=== PATIENT | male | born 1980 | race African-American/Black ===

== ENCOUNTER 2019-08-28 09:56 | Emergency (ER) | payer BC, SELFPAY ==
[2019-08-28 10:01] VITALS: BP 135/83; PULSE 65; RESP 18; TEMP 36.6; O2SAT 100
--- NOTE | 2019-08-28 10:05 | ED.URI ---
HPI - URI/Sore Throat General Chief Complaint: Upper Respiratory Infection Stated Complaint: cough/sinus franco/sinus issues Time Seen by Provider: 08/28/19 10:05 Source: patient and RN notes reviewed Mode of arrival: ambulatory Limitations: no limitations History of Present Illness MD elicited complaint: cough Related Data Home Medications Medication Instructions Recorded Confirmed ibuprofen 200 mg PO Q6H PRN 08/28/19 08/28/19 montelukast 10 mg PO DAILY 08/28/19 08/28/19 Allergies Allergy/AdvReac Type Severity Reaction Status Date / Time No Known Allergies Allergy Verified 08/28/19 10:07 Review of Systems Review of Systems: Narrative: CONSTITUTIONAL: Denies malaise, sweats, or fever. Reports chills EYES: Denies visual changes, redness, or discharge. ENT: Reports rhinorrhea, congestion, sinus pain. Denies otalgia and sore throat. CARDIOVASCULAR: Denies chest pain, palpitations, or edema. RESPIRATORY: Reports occasional cough. Denies dyspnea. GASTROINTESTINAL: Denies abdominal pain, nausea, vomiting, diarrhea SKIN: Denies rash or itching. MUSCULOSKELETAL: Denies myalgia. NEUROLOGIC: Reports headache. All systems reviewed & are unremarkable except as noted in HPI and below PMFSH Past Medical History Medical History (Updated 08/28/19 @ 10:22 by Radha Mckenna NP) Anxiety GERD (gastroesophageal reflux disease) Leg fracture, right Seasonal asthma Social History Social History (Updated 05/20/19 @ 16:20 by Elizabeth Tran) Smoking status: Never smoker Alcohol intake: current Comments At time of signature, agree with nursing past medical, surgical, social and family history. There is no relevant family history pertinent to the presenting complaint Exam Narrative: Exam Narrative: GENERAL: Well-appearing, well-nourished, and in no acute distress. HEAD: Normocephalic EYES: PERRLA, conjunctivae clear ENT: Nares clear, turbinates edematous and erythematous, clear discharge. Mucous membranes moist. TM pearly crenshaw with dull light reflex bilaterally; no tragal tenderness. Oropharynx not erythematous without lesions. Tonsils not enlarged and without exudate, no drooling, no hoarseness, no trismus, uvula midline. NECK: Supple. No lymphadenopathy CHEST: Clear to auscultation, breath sounds equal. No wheezing, rhonchi, rales, or stridor. No respiratory distress, speaks in full sentences. HEART: Regular rate and rhythm. No murmur heard. Normal peripheral pulses. SKIN: Warm, dry, no rash. NEURO: Alert and oriented x3. PSYCH: Normal mood and affect Course Course Emergency Course: Patient is aware of diagnosis, understands and agrees to treatment plan. Anticipatory guidance given. Patient agrees to follow-up as directed and is aware of reasons to seek care at the emergency department. Portions of this record may have been created with voice recognition software Vital Signs Vital signs: Vital Signs Temperature 97.8 F 08/28/19 10:01 Pulse Rate 65 08/28/19 10:01 Respiratory Rate 18 08/28/19 10:01 Blood Pressure 135/83 08/28/19 10:01 Pulse Oximetry 100 08/28/19 10:01 Temperature 97.8 F 08/28/19 10:01 Pulse Rate 65 08/28/19 10:01 Respiratory Rate 18 08/28/19 10:01 Blood Pressure 135/83 08/28/19 10:01 Pulse Oximetry 100 08/28/19 10:01 Reviewed. MDM - URI/Sore Throat MDM Narrative Medical decision making narrative: Differential diagnosis considered: Strep pharyngitis, allergic rhinitis, upper respiratory tract infection, sinusitis, rhinosinusitis, nasopharyngitis. viral pharyngitis, otitis media, otitis externa, pneumonia, bronchitis, viral cough syndrome, viral syndrome, and influenza. Exam findings show no acute concerns or changes; patient is non-toxic appearing and is in no distress. Patient is appropriate for outpatient treatment and follow-up. Critical Care Time Critical Care Time Critical Care Time: No Discharge Plan Discharge Clinical Impression: Upper respiratory infec
== END 2019-08-28 10:30 | disposition home or self-care (01) ==
PROVIDERS: Emergency Provider Nurse Practitioner; PCP Internal Medicine
DX: J06.9 Acute upper respiratory infection, unspecified (principal); K21.9 Gastro-esophageal reflux disease without esophagitis
CPT/HCPCS: 99213; G0463

== ENCOUNTER 2019-12-14 21:28 | Emergency (ER) | payer BC, SELFPAY ==
--- NOTE | ~2019-12-14 | XR_ITS ---
EXAMINATION: XR ankle RT 2V INDICATION: Right ankle pain TECHNIQUE: Two views of the right ankle are obtained. COMPARISON: None available FINDINGS: There is no fracture, dislocation, or subluxation. The bones, soft tissues, and joint space s are normal. IMPRESSION: 1. No acute osseous abnormality. Reviewed, dictated and finalized at location A.
[2019-12-14 21:36] VITALS: BP 114/79; PULSE 91; RESP 14; TEMP 36.9; O2SAT 100
--- NOTE | 2019-12-14 22:37 | PC.NURSE ---
PT MOVED TO ROOM ONE AT THIS TIME.
[2019-12-14] MEDS: KETOROLAC 30 MG/ML VIAL (*BKC) IV PUSH (23:09)
[2019-12-14] MEDS: SODIUM CHLORIDE 0.9% IV 1,000 ML 999 ML IV CONT (23:09)
[2019-12-14 23:10] VITALS: BP 112/67; PULSE 83; RESP 16; O2SAT 98
[2019-12-14 23:25] LABS: Basophils Percent Auto 0.4 % (0.2-1.2); Eosinophils Absolute Auto 0.2 K/mm3 (0-0.3); Hematocrit 39.9 % (42.0-52.0); Hemoglobin 13.4 g/dL (14.0-18.0); Immature Granulocyte Absolute 0.02 K/mm3 (0.00-0.031); Immature Granulocyte Percent A 0.3 % (0-0.5); Lymphocytes Absolute Auto 1.07 K/mm3 (0.9-3.2); Mean Corpuscular HGB Conc 33.6 g/dl (32-36); Mean Corpuscular Hemoglobin 29.1 pg (26-34); Mean Corpuscular Volume 86.6 fl (80-100); Mean Platelet Volume 10.4 fl (7.4-10.4); Monocytes Absolute Auto 0.6 K/mm3 (0.1-0.6); Monocytes Percent Auto 8.7 % (2.6-8.5); Neutrophils Absolute Auto 5.2 K/mm3 (1.3-6.7); Neutrophils Percent Auto 72.6 % (45.5-73.1); Platelet Count Result 222 k/mm3 (150-375); Red Blood Count 4.61 M/mm3 (4.6-6.20); White Blood Count 7.1 K/mm3 (4.5-10.0)
[2019-12-14 23:37] LABS: Blood Urea Nitrogen 18 mg/dL (9-20); Calcium 8.6 mg/dL (8.4-10.2); Carbon Dioxide 21 mmol/L (22-30); Chloride 104 mmol/L (98-107); Estimated CRCL calculation 88 ml/min; Estimated Glomerular Filt Rate > 60; Glucose 212 mg/dL (75-110); Potassium 3.2 mmol/L (3.4-5.0); Sodium 133 mmol/L (137-145)
[2019-12-15 00:11] LABS: Hemoglobin A1C 5.7 % (<5.7)
[2019-12-15] MEDS: POTASSIUM CHLORIDE 20 MEQ TABLET 40 MEQ PO (00:43)
[2019-12-15 00:58] VITALS: BP 119/79; PULSE 71; RESP 19; TEMP 36.4; O2SAT 100
--- NOTE | 2019-12-15 02:05 | PC.NURSE ---
pt refuses to put weight on r ankle at this time. edp notified.
--- NOTE | 2019-12-15 02:58 | ED.LOWEXIN ---
HPI - Extremity Injury (Lower) General Chief Complaint: Extremity Injury, Lower Stated Complaint: R ankle pain Time Seen by Provider: 12/14/19 22:15 History of Present Illness HPI Narrative: Patient is a 39-year-old male who presents the ER with sudden onset pain in his right lower extremity. Is mainly in his right ankle and right calf. He gone out for a ride and came home. When he was walking inside he developed sudden pain. No traumatic injury. Has intermittent cramping in his calf also in his thigh. No numbness or tingling. Has not had similar symptoms. Takes no medications. Related Data Home Medications Medication Instructions Recorded Confirmed ibuprofen 200 mg PO Q6H PRN 08/28/19 08/28/19 montelukast 10 mg PO DAILY 08/28/19 08/28/19 Allergies Allergy/AdvReac Type Severity Reaction Status Date / Time No Known Allergies Allergy Verified 08/28/19 10:07 Review of Systems Review of Systems: All systems reviewed & are unremarkable except as noted in HPI and below Constitutional: Constitutional: Denies chills, Denies fever(s) and Denies weakness ENT: Denies nasal congestion and Denies sore throat Cardiovascular: Cardiovascular: Denies chest pain and Denies radiating jaw, neck or arm pain Respiratory: Respiratory: Denies cough and Denies dyspnea Musculoskeletal: Musculoskeletal: Reports arthralgias, Denies joint swelling and Reports muscle cramps PMFSH Past Medical History Medical History (Updated 12/15/19 @ 03:05 by Mateus Holbrook MD) Anxiety GERD (gastroesophageal reflux disease) Leg fracture, right Seasonal asthma Surgical History Surgical History (Updated 12/15/19 @ 02:59 by Mateus Holbrook MD) No pertinent past surgical history Social History Social History (Updated 05/20/19 @ 16:20 by Elizabeth Tran) Smoking status: Never smoker Alcohol intake: current Exam Narrative: Exam Narrative: GENERAL: Well-appearing, well-nourished, and in no acute distress. HEAD: Normocephalic, atraumatic. HEART: Regular rate and rhythm. Normal peripheral pulses. EXTREMITIES: Focused exam of the right lower extremity reveals cramping to the lower aspect of the gastrocnemius seen down to lower posterior aspect of the leg. Achilles tendon intact and nontender. Patient also has significant tenderness over the lateral malleolus anteriorly without swelling. Range of motion intact. SKIN: Warm, dry, no rash. NEURO: No focal deficits. Alert and oriented x3. PSYCH: Normal mood and affect. Course Course Emergency Course: Pain markedly improved after Toradol and Valium. He has been given crutches and an Mitchel wrap for comfort. Patient educated about elevated blood sugar, reports he ate some gummy bears anything satisfied side. Recommend he follow-up with his PCP for repeat tests. Vital Signs Vital signs: Vital Signs Temperature 98.5 F 12/14/19 21:36 Pulse Rate 91 12/14/19 21:36 Respiratory Rate 14 12/14/19 21:36 Blood Pressure 114/79 12/14/19 21:36 Pulse Oximetry 100 12/14/19 21:36 Temperature 97.6 F 12/15/19 00:58 Pulse Rate 71 12/15/19 00:58 Respiratory Rate 19 12/15/19 00:58 Blood Pressure 119/79 12/15/19 00:58 Pulse Oximetry 100 12/15/19 00:58 MDM - Extremity Injury (Lower) Lab Data Result diagrams: 12/14/19 23:05 12/14/19 23:05 Labs: Lab Results 12/14/19 12/14/19 12/14/19 Range/Units 23:05 23:05 23:05 WBC 7.1 (4.5-10.0) K/mm3 RBC 4.61 (4.6-6.20) M/mm3 Hgb 13.4 L (14.0-18.0) g/dL Hct 39.9 L (42.0-52.0) % MCV 86.6 (80-100) fl MCH 29.1 (26-34) pg MCHC 33.6 (32-36) g/dl RDW 13.0 (11.5-14.5) % Plt Count 222 (150-375) k/mm3 MPV 10.4 (7.4-10.4) fl Immature Gran % (Auto) 0.3 (0-0.5) % Neut % (Auto) 72.6 (45.5-73.1) % Lymph % (Auto) 15.0 L (18.3-44.2) % Treasure % (Auto) 8.7 H (2.6-8.5) % Eos % (Auto) 3.0 (0-4.4) % Baso % (Auto) 0.4 (0.2-1
[2019-12-15 03:08] VITALS: BP 121/64; PULSE 80; RESP 19; TEMP 37.2; O2SAT 100
== END 2019-12-15 03:09 | disposition home or self-care (01) ==
PROVIDERS: Emergency Provider Emergency Medicine; PCP Internal Medicine
DX: R25.2 Cramp and spasm (principal); E87.6 Hypokalemia; R73.9 Hyperglycemia, unspecified
CPT/HCPCS: 36415; 73600; 80048; 83036; 85025; 96361; 96374; 96375; 99284; A9270; J1885; J3360; J7030

== ENCOUNTER 2022-12-22 15:16 | Emergency (ER) | payer BC, SELFPAY ==
--- NOTE | 2022-12-22 15:22 | ED.ABDPAIN ---
HPI - Abdominal Pain General Chief Complaint: Abdominal Pain Stated Complaint: STOMACH PAIN Time Seen by Provider: 12/22/22 15:22 Source: patient, RN notes reviewed and old records reviewed Mode of arrival: ambulatory Limitations: no limitations History of Present Illness HPI narrative: 42-year-old male presents to the [facility] with complaints of stomach pain with diarrhea, nausea and vomiting for 1 week. Unable to keep any fluids or food down for about 1 week. Originally stated was unsure of the last time he ate anything. comes in today stating that he has had generalized abdominal pain, cannot reproduce with palpation. Denies any urinary symptoms. Denies chest pain. Denies shortness of breath. Reports a couple of years ago he did had been upper GI study which had no abnormal findings Denies any abdominal surgeries in the past. Denies any past medical history Onset (ago): week(s) (1) Related Data Home Medications Medication Instructions Recorded Confirmed No Home Medications 12/22/22 12/22/22 Allergies Allergy/AdvReac Type Severity Reaction Status Date / Time No Known Allergies Allergy Verified 12/22/22 15:22 Review of Systems Review of Systems: All systems reviewed & are unremarkable except as noted in HPI and below Constitutional: Constitutional: Reports no additional constitutional complaints Eyes: Eyes: Reports no additional eye complaints ENT: Reports system reviewed and no additional complaints, except as documented Cardiovascular: Cardiovascular: Reports no additional cardiovascular complaints, Denies chest pain and Denies dyspnea Respiratory: Respiratory: Reports no additional respiratory complaints, Denies chest congestion, Denies cough and Denies dyspnea Gastrointestinal: Gastrointestinal: Reports as per HPI, Reports abdominal pain, Reports diarrhea, Reports nausea and Reports vomiting Musculoskeletal: Musculoskeletal: Reports no additional musculoskeletal complaints Integumentary/Breasts: Skin/Breast: Reports system reviewed and no additional complaints, except as docu Neurologic: Reports system reviewed and no additional complaints, except as documented Psychiatric: Psychiatric: Reports no additional psychiatric complaints Allergic/Immunologic: Allergic/Immunologic: Reports no additional allergic/immunologic complaints PMFSH Past Medical History Medical History Anxiety GERD (gastroesophageal reflux disease) Leg fracture, right Seasonal asthma Surgical History Surgical History No pertinent past surgical history Social History Social History (Reviewed 12/22/22 @ 15:39 by BERNARDO Casey Smoking status: Never smoker Alcohol intake: current Alcohol use details: occasional Comments At the time of my signature, I reviewed and agree with the nursing past medical, surgical, social, and family history. There is no relevant family history pertinent to the patient complaint. Exam Const: General: cooperative, healthy appearing, comfortable, no acute distress, well developed, alert and well nourished Nutritional Appearance: well nourished Orientation/consciousness: patient oriented x3 Limitations: no limitations HENMT: Head: normal to inspection Ears: hearing grossly normal bilaterally and external ears normal Face/Nose/Sinus: Normal external nose present, Normal nares present, Normal nasal mucous membranes and turbinates present and normal facial exam Face and sinus: normal facial exam Mouth: Yes Normal oral and palatal mucosa present, Yes lip normal and Yes moist mucous membranes Throat: posterior oropharynx normal and uvula midline Eyes: General: appearance normal, both eyes and all related structures Alignment and Position: alignment normal Periorbital: periorbital findings normal Pupils: Equal, round and reactive pupils present EOM: EOMs intact bilatera
[2022-12-22 15:36] LABS: Glucose Point of Care 131 mg/dl (65-105)
[2022-12-22 15:37] VITALS: BP 130/99; PULSE 88; RESP 16; TEMP 36.6; O2SAT 100
== END 2022-12-22 15:38 | disposition short-term general hospital (02) ==
PROVIDERS: Emergency Provider Nurse Practitioner; PCP Internal Medicine
DX: R10.84 Generalized abdominal pain (principal); R11.2 Nausea with vomiting, unspecified; R19.7 Diarrhea, unspecified; K21.9 Gastro-esophageal reflux disease without esophagitis; J45.909 Unspecified asthma, uncomplicated
CPT/HCPCS: 82948; 99212; G0463

== ENCOUNTER 2022-12-22 16:01 | Emergency (ER) | payer BC, SELFPAY ==
--- NOTE | ~2022-12-22 | CT_ITS ---
CT of the Abdomen and Pelvis: Indication: Abdominal pain Technique: 2.5 mm axial scans were obtained through the abdomen and pelvis following intravenous adm inistration of 100 cc of Omnipaque 350. Dose reduction technique was used on this scan by utilizing a utomated exposure control and iterative reconstruction technique. The dose-length product (DLP) was 6 81.71 mGy-cm. Findings: Scans through the lung bases are unremarkable. The liver, spleen, pancreas, gallbladder, adrenals and kidneys are within normal limits. No evidence of aortic aneurysm. No lymphadenopathy. No bowel obstruction or bowel wall thickening. There is no evidence to suggest acute appendicitis. Images through the pelvis were performed. Urinary bladder unremarkable. Prostate gland and seminal ve sicles are unremarkable. No ascites. Impression: No significant abnormalities seen. Reviewed, dictated and finalized at [facility]. Impression: No significant abnormalities seen.
[2022-12-22 16:05] VITALS: BP 151/89; PULSE 89; RESP 20; TEMP 36.6; O2SAT 100
[2022-12-22 16:34] LABS: Appearance Urine Clear (Clear); Bilirubin Urine Negative (Negative); Blood Urine 1+ (Negative); Color Urine Yellow (Yellow); Glucose Urine UA Negative (Negative); Ketones Urine Negative (Negative); Leukocyte Esterase Ur Negative LEU/UL (Negative); Nitrate Urine Negative (Negative); Protein Urine Trace mg/dL (Negative); Specific Grav Ur >= 1.030 (1.001-1.035); Urobilinogen Urine 0.2 mg/dL (<2.0); pH Urine 5.5 (5.0-9.0)
[2022-12-22 16:34] LABS: Basophils Percent Auto 0.5 % (0.2-1.2); Eosinophils Absolute Auto 0.2 K/mm3 (0-0.3); Eosinophils Percent Auto 3.4 % (0-4.4); Hemoglobin 16.1 g/dL (14.0-18.0); Immature Granulocyte Absolute 0.02 K/mm3 (0.00-0.031); Immature Granulocyte Percent A 0.3 % (0-0.5); Lymphocytes Absolute Auto 1.63 K/mm3 (0.9-3.2); Mean Corpuscular HGB Conc 32.9 g/dl (32-36); Mean Corpuscular Hemoglobin 28.9 pg (26-34); Mean Platelet Volume 9.3 fl (7.4-10.4); Monocytes Absolute Auto 0.7 K/mm3 (0.1-0.6); Monocytes Percent Auto 11.1 % (2.6-8.5); Neutrophils Absolute Auto 3.3 K/mm3 (1.3-6.7); Neutrophils Percent Auto 56.7 % (45.5-73.1); Platelet Count Result 261 k/mm3 (150-375); Red Blood Count 5.57 M/mm3 (4.6-6.20); Red Cell Distribution Width 12.9 % (11.5-14.5); White Blood Count 5.8 K/mm3 (4.5-10.0)
[2022-12-22] MEDS: ONDANSETRON INJ 4 MG/2 ML VIAL IV PUSH (16:36)
[2022-12-22] MEDS: SODIUM CHLORIDE 0.9% IV 1,000 ML 999 ML IV CONT (16:37)
--- NOTE | 2022-12-22 16:40 | ED.GENADULT ---
HPI - General Adult General Chief complaint: Nausea/Vomiting/Diarrhea Stated complaint: N/V/D sent from urgent care Time Seen by Provider: 12/22/22 16:18 History of Present Illness HPI narrative: Patient is a 42-year-old male who presents ER with nausea vomiting diarrhea. Reports he has had abdominal pain that has been worsening over the last week. Bloating and cramping. Worsening bilateral lower quadrants. Reports symptoms are worsened with eating drinking and caused him to have loose bowel movements and vomit. No known sick contacts. No radiation pain. Related Data Allergies Allergy/AdvReac Type Severity Reaction Status Date / Time No Known Allergies Allergy Verified 12/22/22 16:03 Review of Systems Review of Systems: All systems reviewed & are unremarkable except as noted in HPI and below Constitutional: Constitutional: Denies chills, Denies fatigue and Denies fever(s) ENT: Denies nasal congestion and Denies sore throat Respiratory: Respiratory: Denies cough and Denies dyspnea Gastrointestinal: Gastrointestinal: Reports abdominal pain, Reports diarrhea, Reports nausea and Reports vomiting Genitourinary: Genitourinary: Denies dysuria and Denies urinary frequency PMFSH Past Medical History Medical History Anxiety GERD (gastroesophageal reflux disease) Leg fracture, right Seasonal asthma Surgical History Surgical History No pertinent past surgical history Social History Social History Smoking status: Never smoker Alcohol intake: current Alcohol use details: occasional Exam Narrative: GENERAL: Well-appearing, well-nourished, and in no acute distress. HEAD: Normocephalic, atraumatic. EYES: PERRL and EOMI. ENT: Mucous membranes moist. CHEST: Clear to auscultation. No respiratory distress. HEART: Regular rate and rhythm. Normal peripheral pulses. ABDOMEN: Soft, mild tenderness bilateral lower quadrants without guarding, nondistended, normal active bowel sounds. EXTREMITIES: Normal range of motion. No edema. SKIN: Warm, dry, no rash. NEURO: Alert and oriented x3. PSYCH: Normal mood and affect. Course Course Emergency Course: Patient resting comfortably. Informed of results. No acute life-threatening or surgical illness. Patient will experiencing gastroenteritis. No evidence of appendicitis/diverticulitis/stone. Discharge home. Vital Signs Vital signs: Vital Signs Temperature 97.9 F 12/22/22 16:05 Pulse Rate 89 12/22/22 16:05 Respiratory Rate 20 12/22/22 16:05 Blood Pressure 151/89 H 12/22/22 16:05 Pulse Oximetry 100 12/22/22 16:05 Oxygen Delivery Room Air 12/22/22 16:05 Temperature 97.9 F 12/22/22 16:05 Pulse Rate 89 12/22/22 16:05 Respiratory Rate 20 12/22/22 16:05 Blood Pressure 151/89 H 12/22/22 16:05 Pulse Oximetry 100 12/22/22 16:05 Oxygen Delivery Room Air 12/22/22 16:05 Medical Decision Making Vital Signs Vital Signs: Vital Signs Temperature 97.9 F 12/22/22 16:05 Pulse Rate 89 12/22/22 16:05 Respiratory Rate 20 12/22/22 16:05 Blood Pressure 151/89 H 12/22/22 16:05 Pulse Oximetry 100 12/22/22 16:05 Oxygen Delivery Room Air 12/22/22 16:05 Temperature 97.9 F 12/22/22 16:05 Pulse Rate 89 12/22/22 16:05 Respiratory Rate 20 12/22/22 16:05 Blood Pressure 151/89 H 12/22/22 16:05 Pulse Oximetry 100 12/22/22 16:05 Oxygen Delivery Room Air 12/22/22 16:05 Lab Data 12/22/22 16:24 12/22/22 16:24 Labs: Lab Results 12/22/22 12/22/22 Range/Units 16:19 16:24 WBC 5.8 (4.5-10.0) K/mm3 RBC 5.57 (4.6-6.20) M/mm3 Hgb 16.1 (14.0-18.0) g/dL Hct 49.0 (42.0-52.0) % MCV 88.0 (80-100) fl MCH 28.9 (26-34) pg MCHC 32.9 (32-36) g/dl RDW 12.9 (11.5-14.5) % Plt Coun
[2022-12-22 16:46] LABS: Alanine Aminotransferase 46 U/L (6-50); Albumin Level 4.4 g/dL (3.5-5.1); Alkaline Phosphatase 100 U/L (38-126); Anion Gap 7 mmol/L (8-16); Aspartate Amino Transferase 43 U/L (17-59); Bilirubin,Total 1.1 mg/dL (0.2-1.3); Blood Urea Nitrogen 13 mg/dL (9-20); Carbon Dioxide 31 mmol/L (22-30); Chloride 103 mmol/L (98-107); Estimated CRCL calculation 89 ml/min; Estimated Glomerular Filt Rate > 60; Glucose 73 mg/dL (65-110); Lipase 68 U/L (23-300); Potassium 3.9 mmol/L (3.4-5.0); Sodium 141 mmol/L (137-145)
[2022-12-22 16:53] LABS: Atypical Lymphocytes Present; Platelet Estimate Adequate (Adequate); Schistocytes None Seen (NORMAL)
[2022-12-22 16:55] LABS: Add Urine Microscopic? YES
[2022-12-22 16:56] LABS: Calcium Oxalate Crystals Urine Present /hpf; WBC Urine 0-3 /hpf (0-3)
[2022-12-22 16:57] LABS: Bacteria Urine Trace /hpf; Mucus Urine Few /lpf
[2022-12-22 18:05] VITALS: BP 135/98; RESP 20; O2SAT 98
== END 2022-12-22 18:05 | disposition home or self-care (01) ==
PROVIDERS: Emergency Provider Emergency Medicine; PCP Internal Medicine
DX: R11.2 Nausea with vomiting, unspecified (principal); R19.7 Diarrhea, unspecified; J45.909 Unspecified asthma, uncomplicated; K21.9 Gastro-esophageal reflux disease without esophagitis
CPT/HCPCS: 36415; 74177; 80053; 81001; 83690; 85025; 96361; 96374; 99284; J2405; J7030; Q9967

== ENCOUNTER 2024-07-07 15:04 | Outpatient (CLI) | payer BC, SELFPAY ==
--- NOTE | ~2024-07-07 | XR_ITS ---
EXAMINATION: XR chest 2V Exam Date/Time: 07/07/2024 15:07 COSMETIC CONSULTANT HISTORY: COUGH Comparison: None. RESULT: Lines, tubes, and devices: None. Lungs and pleura: Mild diffuse reticulonodular opacities. Cardiomediastinal silhouette: Stable. Other: No acute osseous or upper abdominal finding. IMPRESSION: Pulmonary opacities may represent bronchiolitis, as can be seen with atypical infection, asthma, aspi ration, and small airways disease. Reviewed, dictated and finalized at location K. ETIC CONSULTANT IMPRESSION: Pulmonary opacities may represent bronchiolitis, as can be seen with atypical i nfection, asthma, aspiration, and small airways disease.
== END 2024-07-07 15:05 | disposition home or self-care (01) ==
LOC: MICIMG 15:05
PROVIDERS: PCP Internal Medicine; Visit Provider Internal Medicine
DX: R91.8 Other nonspecific abnormal finding of lung field (principal); R05.9 Cough, unspecified
CPT/HCPCS: 71046